=== PATIENT | male | born 1950 ===

== ENCOUNTER → 2018-11-01 | Outpatient (CLI) | payer OTHER ==
[~2018-11-01] MED LIST: ASPI325; ATOR10 PO; Adult Low Dose81 MG PO; DOXY100 PO; LOSA50 PO; METO50ER PO; OMEP20ER; PIOG30 PO
== END ==
LOC: PLD 07:30 → LAB SHORT 07:30
DX: C44.611 Basal cell carcinoma of skin of unspecified upper limb, including shoulder (principal); L82.1 Other seborrheic keratosis
CPT/HCPCS: 88305